=== PATIENT | female | born 1955 | race Caucasian/White ===

== ENCOUNTER 2019-05-22 08:08 | Inpatient (IN) | payer OTHER ==
[~2019-05-22] VITALS: Ht 170.2 cm; Wt 85.7 kg
--- NOTE | 2019-05-22 08:10 | NUR ---
PT BIBRA 89 FROM HOME C/O MORE ALTERED THAN USUAL, NON VERBAL PER REPORT LAST KNOWN WELL AT 0645H, BG 105. PT IS ALERT, NON VERBAL BUT IS ABLE TO FOLLOW COMMANDS, BREATHING EVEN AND UNLABORED ON ROOM AIR W/ NAD NOTED. PT CONNECTED TO THE MONITOR AND POX.
--- NOTE | 2019-05-22 08:11 | NUR ---
PT IS NON VERBAL, FOLLOWS COMMAND, NO MOTOR DEFICIT, NO SENSORY LOSS, REFERRED .
--- NOTE | 2019-05-22 08:12 | NUR ---
EKG AT BEDSIDE
--- NOTE | 2019-05-22 08:13 | NUR ---
BLOOD DRAWN AND SENT TO LAB
--- NOTE | 2019-05-22 08:15 | NUR ---
SEEN AND EXAMINED BY .
--- NOTE | 2019-05-22 08:22 | NUR ---
DR ASTUDILLO AT BEDSIDE FOR EVAL
[2019-05-22] MEDS ORDERED: GABA-536 PO (08:24)
[2019-05-22] MEDS ORDERED: QUET100T PO (08:24)
[2019-05-22] MEDS ORDERED: LORAZEPAM INJ 2 MG/ML VIAL ONE (08:27)
[2019-05-22] MEDS ORDERED: IV NS 0.9% 500 ML BAG IV ONE (08:30)
[2019-05-22] MEDS ORDERED: AMLO5TAB9 PO (08:30)
[2019-05-22] MEDS ORDERED: LORAZEPAM INJ 2 MG/ML VIAL IV ONE (08:30)
[2019-05-22] MEDS ORDERED: LOVA20TA2 PO (08:30)
[2019-05-22] MEDS ORDERED: TRAZ-182 PO (08:30)
[2019-05-22 08:35] LABS: BASOPHILS # (AUTO) 0.1 /CMM (0.0-0.2); BASOPHILS % (AUTO) 1.4 % (0.0-2.0); EOSINOPHILS % (AUTO) 2.5 % (0.0-6.0); HEMATOCRIT 49 % (33-45); HEMOGLOBIN 16.6 g/dL (11.5-14.8); LYMPHOCYTES # (AUTO) 1.5 /CMM (0.8-4.8); LYMPHOCYTES % (AUTO) 26.9 % (20.0-44.0); MEAN CORPUSCULAR HGB CONC 34 g/dl (31.0-36.0); MEAN CORPUSCULAR VOLUME 104 fL (82-100); MONOCYTES # (AUTO) 0.6 /CMM (0.1-1.30); MONOCYTES % (AUTO) 10.6 % (2.0-12.0); NEUTROPHILS # (AUTO) 3.3 /CMM (1.8-8.9); NEUTROPHILS % (AUTO) 58.6 % (43.0-81.0); PLATELET COUNT (AUTO) 295 /CMM (150-450); RED BLOOD CELL COUNT(AUTO) 4.71 MIL/uL (4.0-5.2); WHITE BLOOD COUNT (AUTO) 5.7 K/uL (4.3-11.0)
[2019-05-22 08:38] LABS: CALCIUM, SERUM 9.9 mg/dL (8.5-10.1); CARBON DIOXIDE 28 mmol/L (21-32); CHLORIDE 95 mmol/L (98-107); CREATININE 0.8 mg/dL (0.6-1.3); GLUCOSE 114 mg/dL (74-106); SODIUM SERUM 129 mmol/L (136-145); UREA NITROGEN, BLOOD 5 mg/dL (7-18)
[2019-05-22 08:44] LABS: ALANINE AMINOTRANSFERASE 64 U/L (12-78); ALBUMIN 3.8 g/dL (3.4-5.0); ALCOHOL, BLOOD < 3 mg/dL (0-0); ALKALINE PHOSPHATASE 111 U/L (46-116); ASPARTATE AMINOTRANSFERASE 47 U/L (15-37); BILIRUBIN,DIRECT 0.1 mg/dL (0.0-0.2); BILIRUBIN,TOTAL 0.4 mg/dL (0.2-1.0); TOTAL PROTEIN, SERUM 8.3 g/dL (6.4-8.2)
--- NOTE | 2019-05-22 08:44 | NUR ---
CODE STROKE ACTIVATED.
--- NOTE | 2019-05-22 08:45 | NUR ---
PT IS WHEELED TO CT SCAN VIA ACLS PROTOCOL.
--- NOTE | 2019-05-22 08:50 | NUR ---
TELE-NEURO ACTIVATED. .
[2019-05-22] MEDS ORDERED: IOHEXOL-350 100 ML VIAL IV ONE (08:54)
[2019-05-22] MEDS ORDERED: IV NS 0.9% 250 ML IV ONE (08:54)
[2019-05-22] MEDS ORDERED: CT SWABBABLE VALVE TRANS SET 1 EA INFUS.SET MC ONE (08:54)
--- NOTE | 2019-05-22 08:55 | NUR ---
Faye lamas in ED - 05/22/19 at 0856 by CORA PT IS WHEELED TO CT SCAN VIA ACLS PROTOCOL
[2019-05-22 09:09] LABS: SERUM AMMONIA < 10 umol/L (11-32)
[2019-05-22 09:13] LABS: THYROID STIMULATING HORMONE 3.898 uIU/mL (0.358-3.74)
--- NOTE | 2019-05-22 09:13 | NUR ---
BACK FROM CT.
--- NOTE | 2019-05-22 09:15 | NUR ---
DR. ASTUDILLO AT BEDSIDE, SPEAKING WITH TELE NEURO MD (DR. JERRY) NO TPA RECOMENDED.
--- NOTE | 2019-05-22 09:21 | NUR ---
CODE STROKE CANCELLED. SPOKE W/ TELENEUROSURGEON.
--- NOTE | 2019-05-22 09:38 | NUR ---
AMBULATED TO THE RESTROOM W/ STEADY GAIT.
--- NOTE | 2019-05-22 10:26 | NUR ---
ASKED NURSING SUP FOR TELE BED. WAITING FOR CALL BACK.
--- NOTE | 2019-05-22 11:10 | NUR ---
GOT BED 103
--- NOTE | 2019-05-22 11:20 | NUR ---
REPORT GIVEN TO REYNA BRANDON
[2019-05-22 11:50] LABS: APPEARANCE,URINE Clear (CLEAR); BILIRUBIN,URINE Negative (NEGATIVE); BLOOD, URINE Negative Ery/uL (NEGATIVE); COLOR,URINE Yellow (YELLOW); KETONES,URINE 15 (NEGATIVE); LEUKOCYTE ESTERASE ,URINE Negative (NEGATIVE); NITRITE, URINE Negative (NEGATIVE); PH,URINE 7.5 (5.0-8.0); PROTEIN,URINE Negative (NEGATIVE); UGLUCOSE Negative (NEGATIVE); UROBILINOGEN,URINE 0.2 EU/dL (0.2)
--- NOTE | 2019-05-22 12:00 | NUR ---
INSURANCE OK READY TO PRESENT
[2019-05-22] MEDS ORDERED: ASPIRIN EC 325 MG TABLET.DR PO SCH (13:00)
[2019-05-22] MEDS ORDERED: ASPIRIN EC 325 MG TABLET.DR PO ONE (13:05)
--- NOTE | 2019-05-22 13:31 | NUR ---
PT TRANSFERRED IN STABLE CONDITION
--- NOTE | 2019-05-22 13:40 | NUR ---
TELE/RN NOTES RECEIVED PATIENT FOR ER ACCOMPANIED BY FAMILY MEMBERS AND ER NURSE. PT WAS IN THE UNIT AND WALKED WITH THE PATIENT. PT ACCOMPANIED PATIENT TO THE BED. INITIAL SKIN ASSESSMENT WAS DONE. SKIN IS INTACT. PATIENT NOTED WITH IV ACCESS ON LAC #18G. INTACT AND PATENT. FLUSHING WELL. ALL NEEDS ANTICIPATED. CALL LIGHT WITHIN REACHED. BED LOCKED AND IN LOWEST POSITION. WILL CONTINUE TO MONITOR CLOSELY.
[2019-05-22 16:00] VITALS: BP 146/91
[2019-05-22] MEDS: BLOOD SUGAR DIAGNOSTIC 1 EACH STRIP IN SCH ×2 (17:43→22:35)
[2019-05-22] MEDS ORDERED: BLOOD SUGAR DIAGNOSTIC 1 EACH STRIP IN SCH (18:00)
--- NOTE | 2019-05-22 19:30 | NUR ---
BENEFITS ANALYST RCD PT W/DX ALOC; A/Ox3. NSR ON MONITOR. SKIN INTACT. L AC 18 G PATENT. PT REQUESTING SLEEPING MEDICATION. PT HESITANT TO ANSWER QUESTIONS ABOUT MEDICATIONS STATES "YOU MAY CALL MY AND ASK HIM." PT ADMITS TO TAKING XANAX WITH WINE LAST NIGHT; SAID SHE HAS BEEN IN AND OUT OF REHAB RECENTLY. STATES SHE TAKES TRAZODONE 600 MG PO QHS. EXPLAINED TO PT MEDICATION HELD AT THIS TIME D/T AMS. PER PT SHE SHE TENDS TO BECOME ANXIOUS AND STARTS SEEING WHITE SPOTS ON THE WALL. PT CALM AT THIS TIME EXPLAINED TO PT IF SHE FEELS OVERWHELMED MD WILL BE CALLED TO BE REEVALUATED. PT AGREED TO PLAN OF CARE. CONTINUE TO MONITOR CLOSELY.
--- NOTE | 2019-05-22 19:37 | NUR ---
TELE/RN CLOSING NOTES PATIENT CONTINUES TO REMAIN IN STABLE CONDITION THROUGHOUT THE SHIFT. PROVIDED COMFORT AND SAFETY. PATIENT WAS ABLE TO TOLERATE MEALS WELL. PATIENT WAS ABLE TO AMBULATE TO THE BATHROOM WELL. ALL NEEDS ANTICIPATED. CALL LIGHT WITHIN REACHED. BED LOCKED AND IN LOWEST POSITION. SAFETY MAINTAINED. WILL CONTINUE TO MONITOR CLOSELY. ENDORSED TO PM NURSE FOR ABBIE.
[2019-05-22 20:00] VITALS: BP 106/75
--- NOTE | 2019-05-22 20:00 | NUR ---
CHILDBIRTH EDUCATOR PT RENDERED ORAL CARE ON SELF.
--- NOTE | 2019-05-22 21:05 | NUR ---
RN ENDORSEMENT NOTES RECEIVED ENDORSEMENT FROM MARRY RN ANASTASIA. WILL CONTINUE WITH Pt's CARE FOR THE REMAINDER OF THE SHIFT.
--- NOTE | 2019-05-22 22:40 | NUR ---
RN NOTES HS ACCUCHECK BG 98. NO INSULIN COVERAGE NEEDED AT THIS TIME.
--- NOTE | 2019-05-23 00:35 | NUR ---
RN NOTES PER FINANCE BROKER REPORT, Pt REQUESTED TO NOT BE DISTURBED FOR VITAL SIGNS IF SLEEPING, IN REGARDS FOR THE 0400 VITAL SIGNS.
[2019-05-23 00:45] VITALS: BP 181/105
--- NOTE | 2019-05-23 01:28 | NUR ---
RN NOTES SPOKE WITH DR MARTINEZ ON THE PHONE TO INFORM HIM OF Pt's HIGH BP OF 183/107. GAVE VERBAL ORDER FOR CLONIDINE 0.1MG PO Q8H PRN FOR SBP>160. ALSO INFORMED DR MARTINEZ OF Pt's LOW POTASSIUM LEVEL OF 3.0 THAT WAS NOT REPLACED DURING DAYSHIFT. ALSO GAVE ORDER TO GIVE KDUR 40MEQ PO X1 DOSE. WILL CARRY OUT ORDERS.
[2019-05-23] MEDS ORDERED: POTASSIUM CHLORIDE 20 MEQ TAB.PRT.SR PO ONE (02:00)
[2019-05-23] MEDS ORDERED: CLONIDINE HCL 0.1 MG TABLET PO PRN (02:00)
--- NOTE | 2019-05-23 04:00 | NUR ---
RN NOTES PER Pt's REQUEST SINCE Pt WAS ASLEEP, DID NOT DISTURBED Pt AT THIS TIME. WILL RECHECK VITAL SIGNS CLOSER TO 0600.
[2019-05-23 06:00] VITALS: BP 140/99
--- NOTE | 2019-05-23 06:15 | NUR ---
RN NOTES RECHECKED VS: BP 140/99; HR 94; R 18; T 98F; O2 SAT 98% ON 2L NC
--- NOTE | 2019-05-23 06:22 | NUR ---
RN CLOSING NOTES NO SIGNIFICANT CHANGES IN Pt's CONDITION. Pt REMAINED STABLE THROUGHOUT THE NIGHT. NO S/S OF ACUTE DISTRESS OR SEVERE SOB NOTED DURING THE SHIFT. ALL NEEDS MET AND ATTENDED TO. SAFETY MEASURES IN PLACE. BED LOW, LOCKED, HOB ELEVATED, SIDE RAILS UP, CALL LIGHT AND BEDSIDE TABLE WITHIN REACH. TELE READING SR-ST. WILL ENDORSE TO DAYSHIFT RN FOR Pt's ABBIE.
[2019-05-23 08:00] VITALS: BP 155/103
--- NOTE | 2019-05-23 08:00 | NUR ---
HOME ASSESSMENT NURSE NOTE PATIENT IN BED , ALERT , ORIENTED X3 , NO SOB NOTED AT THIS KELLY , RESPIRATION EVEN UNLABORED , ON TELE MONITOR SR HR 95 , LT AC HL INTACT AND FLUSHED WELL , BED IN LOWEST AND LOCKED POSITION , ABLE TO EAT BREAKFAST SELF , BED IN LOWEST AND LOCKED POSITION , PLAN OF CARE DISCUSSER WITH PATIENT ,. WILL CONT TO MONITOR
[2019-05-23] MEDS: DOCUSATE SODIUM 100 MG CAPSULE PO SCH (08:30)
[2019-05-23] MEDS: ASPIRIN EC 325 MG TABLET.DR PO SCH (08:31)
[2019-05-23] MEDS: ATORVASTATIN 10 MG TABLET PO SCH (08:31)
[2019-05-23] MEDS: PANTOPRAZOLE 40 MG TABLET.DR PO SCH (08:36)
[2019-05-23] MEDS: BLOOD SUGAR DIAGNOSTIC 1 EACH STRIP IN SCH ×4 (08:38→22:22)
[2019-05-23] MEDS ORDERED: AMLODIPINE BESYLATE 5 MG TABLET PO SCH (09:00)
[2019-05-23] MEDS: AMLODIPINE BESYLATE 5 MG TABLET PO SCH (09:16)
[2019-05-23 09:17] LABS: CALCIUM, SERUM 9.5 mg/dL (8.5-10.1); CREATININE 0.8 mg/dL (0.6-1.3); PHOSPHORUS 3.4 mg/dL (2.5-4.9); POTASSIUM 3.9 mmol/L (3.5-5.1)
[2019-05-23 09:35] LABS: BASOPHILS % (AUTO) 0.7 % (0.0-2.0); EOSINOPHILS % (AUTO) 2.5 % (0.0-6.0); HEMATOCRIT 46 % (33-45); HEMOGLOBIN 15.6 g/dL (11.5-14.8); LYMPHOCYTES # (AUTO) 1.5 /CMM (0.8-4.8); MEAN CORPUSCULAR HGB CONC 34 g/dl (31.0-36.0); MEAN CORPUSCULAR VOLUME 104 fL (82-100); MONOCYTES # (AUTO) 0.6 /CMM (0.1-1.30); MONOCYTES % (AUTO) 9.6 % (2.0-12.0); NEUTROPHILS # (AUTO) 3.8 /CMM (1.8-8.9); NEUTROPHILS % (AUTO) 62.2 % (43.0-81.0); PLATELET COUNT (AUTO) 216 /CMM (150-450); RED BLOOD CELL COUNT(AUTO) 4.47 MIL/uL (4.0-5.2); WHITE BLOOD COUNT (AUTO) 6.1 K/uL (4.3-11.0)
--- NOTE | 2019-05-23 09:57 | NUR ---
COMBAT RIFLE CREWMEMBER NOTE UA COLLECTED ORDERED ABLE TO EAT SELF , NOT IN DISTRESS
[2019-05-23 10:06] LABS: CHOLESTEROL 345 mg/dL (<200); HDL CHOLESTEROL 51 mg/dL (40-60); LDL 247 mg/dL (0-99); TRIGLYCERIDES 91 mg/dL (30-150)
--- NOTE | 2019-05-23 10:24 | NUR ---
cable television access coordinator note stroke teaching and education given, understood, dvt pump in place
[2019-05-23 10:58] LABS: OSMOLALITY,URINE 146 mOS/kg (340-1090)
[2019-05-23 11:05] LABS: URINE SODIUM, RANDOM 24 mmol/l (40-220)
--- NOTE | 2019-05-23 14:13 | NUR ---
Social service consult requested by Dr. Dale for stroke. SW met with the pt. bedside. Pt. appeared teary eyed and had a sad affect. Pt. is alert and oriented x 3. Pt. is very pleasant and cooperative with SW during the assessment. SW completed the PH Q-9 post stroke depression screening. Pt. scored a 8 and appears to be mildly depressed. LEIDY initiated psychiatric consult by informing pt's REYNA Vasquez. LEIDY also informed REYNA Vasquez to complete the Suicide risk assessment. Pt. has a history of Depression and has taken Ativan and Xanax in the past. Pt. denies suicidal and homicidal ideations at this time. Pt. lives with her daughter in [place]. Pt's emergency contact is her friend Irvin Reis . Pt. states she will have lots of help at home from her neighbors. SW is available, if needed.
[2019-05-23 16:00] VITALS: BP 144/107
--- NOTE | 2019-05-23 16:30 | NUR ---
ENGINEERING FACULTY NOTE PER AIR DEFENSE CONTROL OFFICER OK TO ORDER PSYCH EVAL, [facility]
--- NOTE | 2019-05-23 17:53 | NUR ---
COLD ROLL OPERATOR NOTE EGG DOING NOW
--- NOTE | 2019-05-23 18:41 | NUR ---
RN NOTES NO ACUTE CHANGE IN PATIENT CONDITION THROUGHOUT SHIFT. PT REMAINS ALERT BUT CONFUSED. PT REMAINED STABLE. NO ACUTE DISTRESS OR SOB NOTED THROUGH MY SHIFT. PT DOWNGRADED TO MED SURG FROM TELE. SAFETY MAINTAINED. BED LOW, ALARMED, LOCKED. CALL LIGHT WITHIN REACH. ALL NEEDS MET AND ATTENDED TO.
--- NOTE | 2019-05-23 19:20 | NUR ---
MS RN NOTES PT MORE CONFUSED, DISORIENTED, WAITING FOR THEW PSYCH EVAL.
[2019-05-23 20:00] VITALS: BP 145/113
[2019-05-24 04:00] VITALS: BP 147/97
[2019-05-24 06:41] LABS: BASOPHILS # (AUTO) 0.1 /CMM (0.0-0.2); BASOPHILS % (AUTO) 0.8 % (0.0-2.0); EOSINOPHILS % (AUTO) 1.7 % (0.0-6.0); HEMATOCRIT 48 % (33-45); HEMOGLOBIN 16.2 g/dL (11.5-14.8); LYMPHOCYTES # (AUTO) 1.3 /CMM (0.8-4.8); LYMPHOCYTES % (AUTO) 13.6 % (20.0-44.0); MEAN CORPUSCULAR HGB CONC 34 g/dl (31.0-36.0); MEAN CORPUSCULAR VOLUME 102 fL (82-100); MONOCYTES # (AUTO) 0.8 /CMM (0.1-1.30); MONOCYTES % (AUTO) 8.3 % (2.0-12.0); NEUTROPHILS % (AUTO) 75.6 % (43.0-81.0); PLATELET COUNT (AUTO) 245 /CMM (150-450); RED BLOOD CELL COUNT(AUTO) 4.64 MIL/uL (4.0-5.2); WHITE BLOOD COUNT (AUTO) 9.3 K/uL (4.3-11.0)
[2019-05-24 06:45] LABS: CALCIUM, SERUM 10.1 mg/dL (8.5-10.1); CREATININE 0.8 mg/dL (0.6-1.3); PHOSPHORUS 2.8 mg/dL (2.5-4.9); POTASSIUM 3.5 mmol/L (3.5-5.1)
--- NOTE | 2019-05-24 07:25 | NUR ---
RN NOTE: Received patient in bed, awake, spontaenously open her eyes and nonverbal at this time. Respiration even and unlabored with O2 2L/min via NC saturating 97%. Patient was guarded and refused to talk and interact with the nurse. Breakfast meal was also refused. (L) AC IV site noted patent and intact. Afebrile. Skin warm to touch. Bed alarmed and locked at all times. Bed on lowest position. On close monitoring with the nurses and room was close to the nursing station. Call light within reach. Needs anticipated.
[2019-05-24 07:26] LABS: THYROID STIMULATING HORMONE 3.448 uIU/mL (0.358-3.74); URIC ACID 4.1 mg/dL (2.6-7.2)
[2019-05-24 08:00] VITALS: BP 156/109
[2019-05-24] MEDS: BLOOD SUGAR DIAGNOSTIC 1 EACH STRIP IN SCH ×4 (08:12→22:25)
[2019-05-24] MEDS: DOCUSATE SODIUM 100 MG CAPSULE PO SCH (08:43)
[2019-05-24] MEDS: ATORVASTATIN 10 MG TABLET PO SCH (08:43)
[2019-05-24] MEDS: ASPIRIN EC 325 MG TABLET.DR PO SCH (08:43)
[2019-05-24] MEDS: PANTOPRAZOLE 40 MG TABLET.DR PO SCH (08:43)
[2019-05-24] MEDS: AMLODIPINE BESYLATE 5 MG TABLET PO SCH (08:44)
--- NOTE | 2019-05-24 10:00 | NUR ---
RN NOTE: Patient was observed that she was talking to herself when she is alone in the room, and there are times that she would be crying for no reason. When patient was asked what's bothering her she stated "I don't want to talk to anybody. Leave me alone. Only Jenn can talk and be here in the room with me." Will closely monitor the patient and awaiting for psych eval. GPS staff was aware of the psych eval with Dr. Friedman and per [facility] staff, Marielena, Dr. Friedman has not make his rounds until later [facility]. Will endorse to cloth desizing range tender nurse to make sure that the patient will be seen by psych MD.
--- NOTE | 2019-05-24 11:25 | NUR ---
RN NOTE: Patient was noted trying to get out of the bed and was talking to herself and was calling a specific name "Jenn." According to the patient's , Jenn is their house helper. The patient kept calling Jenn's name and kept stating that "only Jenn can get near me." Patient verbalized "None of the Stacks can make decision for me. And don't talk to my Irvin and daughter Riley." Dr. Dale was made aware and a 1:1 sitter was ordered.
--- NOTE | 2019-05-24 12:00 | NUR ---
RN NOTE: Patient was very loud and verbally abusive at this time in her room. Refused blood sugar check and refused to have anybody inside the room. Sitter was asked to closely monitor the patient by the room's door. Bed alarm was kept on and patient was closely monitored.
--- NOTE | 2019-05-24 14:20 | NUR ---
RN NOTE: Dr. Rivera was at the bedside and discussed with her the current mental status of the patient. Per Dr. Rivera, the EEG result of the patient from yesterday came back negative. She remained to be confused and noted with episodes of aggressiveness. Dr. Rivera still recommended the psychiatric evaluation for the patient. MD was informed that the patient was pending for the psych consult with Dr. Friedman today.
[2019-05-24 16:00] VITALS: BP 149/105
--- NOTE | 2019-05-24 18:20 | NUR ---
RN NOTE: Patient ate her dinner meals and was nice and calm at this time.
--- NOTE | 2019-05-24 19:25 | NUR ---
RN NOTE: Bedside report was given to PM shift nurse and patient remained on close monitoring with staff. Awaiting for psych MD to see the patient.
[2019-05-24 20:00] VITALS: BP 155/92
[2019-05-24] MEDS: HALOPERIDOL 5 MG TABLET PO SCH (21:44)
[2019-05-24] MEDS: BENZTROPINE MESYLATE (1 MG) 1 MG TABLET PO SCH (21:44)
--- NOTE | 2019-05-24 21:50 | NUR ---
rn notes seen and evaluated by dr. Friedman with new orders for haldol and congentine. noted and carried out. The doctor said he will be back tomorrow
[2019-05-25 04:00] VITALS: BP 144/95
--- NOTE | 2019-05-25 07:05 | NUR ---
MS RN OPENING NOTE: Received patient in bed and asleep, easily arousable with touch and sound. Respiration even and unlabored with O2 2L/min via NC saturating 96%. Patient was guarded and refused to talk and interact with the nurse. (L) midline IV site noted patent and intact. Afebrile. Skin warm to touch. No pain noted or reported. Bed alarmed and locked at all times. Bed on lowest position. On close monitoring with the nurses and room was close to the nursing station. Call light within reach. Needs anticipated. Will continue to monitor. Addendum: 05/25/19 at 0824 by CHARITY MORALES RN IV SITE AT L AC NOT L MIDLINE
[2019-05-25] MEDS: BLOOD SUGAR DIAGNOSTIC 1 EACH STRIP IN SCH ×4 (07:30→21:58)
[2019-05-25] MEDS: PANTOPRAZOLE 40 MG TABLET.DR PO SCH (07:52)
[2019-05-25 07:53] LABS: BASOPHILS % (AUTO) 0.6 % (0.0-2.0); EOSINOPHILS % (AUTO) 3.9 % (0.0-6.0); HEMATOCRIT 45 % (33-45); HEMOGLOBIN 15.5 g/dL (11.5-14.8); LYMPHOCYTES # (AUTO) 1.8 /CMM (0.8-4.8); LYMPHOCYTES % (AUTO) 21.4 % (20.0-44.0); MEAN CORPUSCULAR HGB CONC 34 g/dl (31.0-36.0); MEAN CORPUSCULAR VOLUME 103 fL (82-100); MONOCYTES # (AUTO) 0.8 /CMM (0.1-1.30); MONOCYTES % (AUTO) 9.5 % (2.0-12.0); NEUTROPHILS # (AUTO) 5.3 /CMM (1.8-8.9); NEUTROPHILS % (AUTO) 64.6 % (43.0-81.0); PLATELET COUNT (AUTO) 218 /CMM (150-450); RED BLOOD CELL COUNT(AUTO) 4.41 MIL/uL (4.0-5.2); WHITE BLOOD COUNT (AUTO) 8.3 K/uL (4.3-11.0)
[2019-05-25 08:00] VITALS: BP 155/95
[2019-05-25 08:03] LABS: CALCIUM, SERUM 9.4 mg/dL (8.5-10.1); CREATININE 0.8 mg/dL (0.6-1.3); PHOSPHORUS 4.2 mg/dL (2.5-4.9); POTASSIUM 3.5 mmol/L (3.5-5.1)
[2019-05-25] MEDS: HALOPERIDOL 5 MG TABLET PO SCH ×3 (08:48→17:55)
[2019-05-25] MEDS: ATORVASTATIN 10 MG TABLET PO SCH (08:49)
[2019-05-25] MEDS: ASPIRIN EC 325 MG TABLET.DR PO SCH (08:49)
[2019-05-25] MEDS: BENZTROPINE MESYLATE (1 MG) 1 MG TABLET PO SCH ×3 (08:49→17:55)
[2019-05-25] MEDS: AMLODIPINE BESYLATE 5 MG TABLET PO SCH (08:50)
[2019-05-25] MEDS: DOCUSATE SODIUM 100 MG CAPSULE PO SCH (09:00)
[2019-05-25] MEDS ORDERED: ACETAMINOPHEN 325 MG TABLET PO PRN (13:30)
[2019-05-25 16:00] VITALS: BP 158/99
--- NOTE | 2019-05-25 19:10 | NUR ---
MS RN CLOSING NOTE: Patient in bed, awake, alert and responsive throughout shift. Orientation assessed and x4. Respiration even and unlabored with O2 2L/min via NC. Patient was very cooperative and with pleasant demeanor on shift, family members visited earlier and reported to nurse about patient's flight of ideas when talking with them. (L) midline IV site noted patent and intact. Afebrile. Skin warm to touch. No pain noted or reported. Bed alarmed and locked at all times. Bed on lowest position. No pain noted or reported at this time. Call light within reach. Needs anticipated. Endorsed to oncoming shift for ABBIE.
--- NOTE | 2019-05-25 19:35 | NUR ---
MS1 RN NOTES RECEIVED ON BED,ON SITTING POSITION,BREATHING NORMAL,NOT IN ANY FORM OF DISTRESS.SALINE LOCK LEFT HAND INTACT AND PATENT.DENIES DISCOMFORTS AT THE MOMENT.CALM AND ABLE TO VERBALIZED NEEDS.CALL LIGHT IN REACH,NEEDS ANTICIPATED.
[2019-05-25 20:00] VITALS: BP 144/84
--- NOTE | 2019-05-25 22:00 | NUR ---
MS1 RN NOTES ACCU-CHECK BLOOD SUGAR 96.NO INSULIN COVERAGE.SEEN BT MD MORELOS,NO NEW ORDERS NOTED.
[2019-05-26 04:00] VITALS: BP 145/98
--- NOTE | 2019-05-26 06:13 | NUR ---
MS1 RN NOTES MORE ALERT AND CALM,ABLE TO CONVERSE WITH NURSE.NO SI NOTED.SALINE LOCK REMAINS PATENT ON LEFT ARM.IN NO ACUTE DISTRESS.CALL LIGHT ION REACH,NEEDS ATTENDED.
[2019-05-26] MEDS: BLOOD SUGAR DIAGNOSTIC 1 EACH STRIP IN SCH ×2 (07:44→12:25)
--- NOTE | 2019-05-26 07:44 | NUR ---
MS RN NOTES PATIENT IN BED A/O X4 AWAKE. BLOOD GLUCOSE LEVEL 87 NO INSULIN GIVEN. NO PAIN OR DISCOMFORT NOTED AT THIS TIME. CALL LIGHT WITHIN REACH BED AT THE LOWEST POSITION LOCKED. WILL CONTINUE TO MONITOR PATIENT.
[2019-05-26 08:00] VITALS: BP 148/96
[2019-05-26] MEDS: PANTOPRAZOLE 40 MG TABLET.DR PO SCH (08:25)
[2019-05-26] MEDS: BENZTROPINE MESYLATE (1 MG) 1 MG TABLET PO SCH ×2 (08:26→13:15)
[2019-05-26 08:27] VITALS: BP 148/96
[2019-05-26] MEDS: ASPIRIN EC 325 MG TABLET.DR PO SCH (08:27)
[2019-05-26] MEDS: AMLODIPINE BESYLATE 5 MG TABLET PO SCH (08:27)
[2019-05-26] MEDS: DOCUSATE SODIUM 100 MG CAPSULE PO SCH (08:27)
[2019-05-26] MEDS: HALOPERIDOL 5 MG TABLET PO SCH ×2 (08:27→13:15)
[2019-05-26] MEDS: ATORVASTATIN 10 MG TABLET PO SCH (08:27)
[2019-05-26] MEDS ORDERED: HALO5TAB8 PO (09:55)
[2019-05-26] MEDS ORDERED: BENZ1TAB7 PO (09:55)
--- NOTE | 2019-05-26 12:31 | NUR ---
MS RN NOTES CALLED DR MORELOS.PER DR MORELOS PATIENT IS CLEAR TO BE DISCHARGED. BLOOD GLUCOSE LEVEL 87 NO INSULIN GIVEN.
--- NOTE | 2019-05-26 13:46 | NUR ---
MS RN NOTES (DISCHARGED) PATIENT IS IN STABLE CONDITION , AT BED SIDE. TRANSFERRED TO THE MAIN LOBBY BY WHEELCHAIR SAFELY. IV REMOVED. ID BAND REMOVED. EDUCATION PROVIDED AND COPY GIVEN TO THE PATIENT. DISCHARGED
== END 2019-05-26 13:56 | disposition home or self-care (01) | DRG 640 ==
LOC: ER 08:09 → EDSEX 08:09 → TELE1 11:58 → MEDSG1 05-23 12:09
PROVIDERS: ADMIT Internal Medicine; ATTEND Internal Medicine
DX: E87.1 Hypo-osmolality and hyponatremia (principal); G93.41 Metabolic encephalopathy; R47.01 Aphasia; I10 Essential (primary) hypertension; E87.6 Hypokalemia; E86.1 Hypovolemia; F29 Unspecified psychosis not due to a substance or known physiological condition; E78.5 Hyperlipidemia, unspecified; F32.9 Major depressive disorder, single episode, unspecified; R56.9 Unspecified convulsions
CPT/HCPCS: 36415; 70450-TC; 70496-TC; 71045-TC; 80048-TC; 80061-TC; 80076-TC; 80305; 81000-TC; 82140-TC; 82533; 82962-TC; 83605-TC; 83735-TC; 83935-TC; 84100-TC; 84300-TC; 84443-TC; 84484-TC; 84550-TC; 85025-TC; 85730-TC; 87081-TC; 92521; 92611-TC; 93307-TC; 93880-TC; 95819-TC; 97116-TC; 97530-TC; 97535-TC; G0378; G0480; J2060; J7050; Q9967